=== PATIENT | male | born 1965 | race Caucasian/White ===

== ENCOUNTER 2020-07-04 11:36 | Emergency (ER) | payer OTHER ==
[2020-07-04 14:47] LABS: HEMOGLOBIN 14.4 gm/dl (14.0-17.5); RED BLOOD COUNT 4.78 M/UL (4.20-5.50); WHITE BLOOD COUNT 8.2 K/UL (4.5-11.0)
[2020-07-04] MEDS ORDERED: HYDROCODON-ACE1 EAC4 PO (15:32)
[2020-07-04] MEDS ORDERED: ZOFRAN4 MG PO (15:52)
[2020-07-04] MEDS ORDERED: IBUPROFEN600 MG PO (15:52)
== END 2020-07-04 16:15 | disposition home or self-care (01) ==
LOC: ER1 11:36
PROVIDERS: Physician Assistant Medical
DX: N13.2 Hydronephrosis with renal and ureteral calculous obstruction (principal); Z87.442 Personal history of urinary calculi; Z88.0 Allergy status to penicillin
CPT/HCPCS: 80053; 81001; 85025; 96374; 96375; 99284; J2270; J2405